=== PATIENT | female | born 1980 | race African-American/Black ===

== ENCOUNTER 2022-06-21 05:39 | Day surgery (SDC) | payer MEDICAID ==
[~2022-06-21] VITALS: Ht 160 cm; Wt 84.4 kg
[2022-06-21] MEDS ORDERED: LACTATED RINGERS 1,000 ML IV SCH (06:15)
[2022-06-21 06:25] LABS: UCG SCREEN NEGATIVE
[2022-06-21] MEDS ORDERED: BUPIVACAINE HCL 0.5% (5MG/ML) 50ML ONE (06:43)
[2022-06-21] MEDS ORDERED: FENTANYL CITRATE/PF 50MCG/ML 2ML VIAL ONE (07:12)
[2022-06-21] MEDS ORDERED: PROPOFOL 200MG/20ML VIAL IV ONE ×2 (07:12→07:52)
[2022-06-21] MEDS ORDERED: LIDOCAINE HCL 1% 50ML VIAL (10MG/ML) ONE (07:13)
[2022-06-21] MEDS ORDERED: MIDAZOLAM HCL 2 MG/2 ML VIAL ONE (07:13)
[2022-06-21] MEDS ORDERED: METHYLENE BLUE 50 MG/10 ML AMP IV ONE (07:30)
[2022-06-21] MEDS ORDERED: BACITRACIN 15GM TUBE TOP ONE (08:03)
[2022-06-21] MEDS ORDERED: ONDANSETRON HCL 4MG/2ML INJ ONE (08:05)
[2022-06-21] MEDS ORDERED: DEXAMETHASONE 4MG/ML 1ML VIAL ONE (08:05)
[2022-06-21] MEDS ORDERED: KETOROLAC 30MG/ML VIAL ONE (08:05)
[2022-06-21] MEDS ORDERED: CEFAZOLIN SODIUM 1000MG/VIAL ONE (08:27)
== END 2022-06-21 11:15 | disposition home or self-care (01) ==
LOC: OR 05:39
PROVIDERS: ATTEND Surgery
DX: K60.3 Anal fistula (principal); Z79.899 Other long term (current) drug therapy; Z98.890 Other specified postprocedural states; Z20.822 Contact with and (suspected) exposure to COVID-19
CPT/HCPCS: 46270; 81025; 87426; 88305; C9803; J0690; J1100; J1885; J2250; J2405; J2704; J3010; J3490; Q9968